=== PATIENT | female | born 2000 | race Caucasian/White ===

== ENCOUNTER 2021-01-05 14:57 | Emergency (ER) | payer OTHER ==
[~2021-01-05] VITALS: Ht 167.6 cm; Wt 109.8 kg
[2021-01-05 14:58] VITALS: BP_DIAS 90
[2021-01-05] MEDS ORDERED: PRENTAB53 PO (15:09)
[2021-01-05] MEDS ORDERED: PROMETHAZINE INJ 25 MG/ML VIAL (J2550) IV ONE (15:40)
[2021-01-05] MEDS ORDERED: NS 1,000 ML IV ONE (15:40)
[2021-01-05 16:36] LABS: BASO % 0.2 % (0.0-1.0); EOS # 0.1 10^3/uL (0.0-0.5); EOS % 0.6 % (0.0-3.0); HEMATOCRIT 40.9 % (36.0-47.0); HEMOGLOBIN 13.3 g/dl (12.0-15.5); LYMPH # 1.7 10^3/uL (1.5-5.0); LYMPH % 19.5 % (24.0-44.0); MEAN CORPUSCULAR HEMOGLOBIN 26.8 pg (27.0-33.0); MEAN CORPUSCULAR HGB CONC 32.5 g/dl (32.0-36.5); MEAN CORPUSCULAR VOLUME 82.3 fl (80.0-96.0); MONO # 0.9 10^3/uL (0.0-0.8); MONO % 9.9 % (2.0-8.0); NEUTROPHILS % 69.5 % (36.0-66.0); PLATELET COUNT, AUTOMATED 298 10^3/uL (150-450); RED BLOOD COUNT 4.97 10^6/uL (4.00-5.40); WHITE BLOOD COUNT 8.6 10^3/uL (4.0-10.0)
--- NOTE | 2021-01-05 16:44 | REP ---
INDICATION: 13 weeks, cramping, vomiting. COMPARISON: None TECHNIQUE: Transabdominal FINDINGS: Multiple ultrasonographic images of the gravid uterus shows a single living intra uterine gestation in variable but predominantly breach presentation. Doppler interrogation of the heart shows a heart rate of 134 beats per minute. The developing placenta is anterior and not low-lying. There is no evidence of a placental or retroplacental hemorrhage or hematoma. The cervix measures 3.8 cm in length and is closed. No biometric measurements were obtained by the technologist. No crown-rump length measurement was obtained. The calculated amniotic fluid index available on the provided worksheet is 6.5 cm the subjective amniotic fluid volume appears to be within normal limits. Both maternal ovaries were identified and were seen to be within normal limits. IMPRESSION: Limited early OB ultrasound as described above. <Electronically signed by Jogre L Espinal > 01/05/21 [id number]
[2021-01-05 17:05] LABS: BLOOD UREA NITROGEN 8 MG/DL (7-18); CARBON DIOXIDE LEVEL 27 MEQ/L (21-32); CHLORIDE LEVEL 100 MEQ/L (98-107); CREATININE FOR GFR 0.68 MG/DL (0.55-1.30); GLUCOSE, FASTING 73 MG/DL (70-100); SODIUM LEVEL 135 MEQ/L (136-145)
[2021-01-05 17:06] LABS: CALCIUM LEVEL 9.5 MG/DL (8.5-10.1)
[2021-01-05] MEDS ORDERED: PROM12.56 PO (18:21)
[2021-01-05 18:30] VITALS: BP_SYST 131
== END 2021-01-05 18:35 | disposition home or self-care (01) ==
LOC: M ED 14:57
DX: O26.892 Other specified pregnancy related conditions, second trimester (principal)

== ENCOUNTER → 2021-01-12 | Outpatient (REF) | payer OTHER ==
[~2021-01-12] MED LIST: PRENTAB53 PO; PROM12.56 PO
== END ==
LOC: M PLALAB 14:47
PROVIDERS: ATTEND Obstetrics & Gynecology
DX: Z3A.13 13 weeks gestation of pregnancy (principal); Z53.9 Procedure and treatment not carried out, unspecified reason

== ENCOUNTER 2021-02-15 22:48 | Emergency (ER) | payer OTHER ==
[~2021-02-15] VITALS: Ht 167.6 cm; Wt 111.7 kg
[2021-02-15] MEDS ORDERED: ACET-683 PO (22:54)
[2021-02-16 01:03] LABS: AMORPHOUS SEDIMENT SMALL (NEGATIVE); APPEARANCE, URINE CLOUDY (CLEAR); BACTERIA, URINE AUTO 1+ (NEGATIVE); BILIRUBIN, URINE AUTO NEGATIVE (NEGATIVE); BLOOD, URINE BLOOD NEGATIVE (NEGATIVE); COLOR, URINE YELLOW (YELLOW); GLUCOSE, URINE (UA) AUTO NEGATIVE (NEGATIVE); KETONE, URINE AUTO NEGATIVE (NEGATIVE); LEUKOCYTE ESTERASE, URINE AUTO 3+ (NEGATIVE); MUCUS, URINE SMALL (NEGATIVE); NITRITE, URINE AUTO NEGATIVE (NEGATIVE); PROTEIN, URINE AUTO NEGATIVE (NEGATIVE); RBC, URINE AUTO 7 /HPF (0-3); SPECIFIC GRAVITY URINE AUTO 1.013 (1.002-1.035); SQUAMOUS EPITHELIAL CELL UR AU 9 /HPF (0-6); WBC, URINE AUTO 10 /HPF (0-3)
[2021-02-16] MEDS ORDERED: MACR100C43 PO (01:27)
[2021-02-16 01:35] VITALS: BP 124/74
--- NOTE | 2021-02-16 08:08 | REP ---
INDICATION: left pelvic pain. Repeat dictation. Preliminary report is provided at the time of the exam by sandra ROMO. COMPARISON: Comparison study January 05, 2021.. TECHNIQUE: Limited obstetric sonography. Transabdominal scanning. FINDINGS: Scanning through the gravid uterus demonstrates a viable single intrauterine gestation in cephalic lie. motion is observed and heart rate is recorded at 155 beats per minute. A anterior placenta is seen, grade 0, without evidence of placenta previa. Closed cervical length is measured at 3.1 cm transabdominally. No extrauterine abnormality is observed. Amniotic fluid is subjectively normal. ОЛЬГА is normal at 13.6 cm.. SD ratio in the umbilical cord artery by Doppler is normal at 2.77.. Biometry chart: Hypoechoic area is seen in the placenta measuring 5.2 x 2.9 x 3.3 cm. This consistent with a venous Wheat. IMPRESSION: Single living intrauterine gestation in a cephalic presentation. Limited scanning shows normal amniotic fluid and umbilical arterial SD ratio. <Electronically signed by Adrian Braxton > 02/16/21 [id number]
--- NOTE | 2021-02-16 08:09 | REP ---
INDICATION: 18 weeks preg, L lower pelvic pain, l flank pain. Repeat dictation. Preliminary report is provided at the time of the exam by sandra ROMO. COMPARISON: None. TECHNIQUE: Urinary tract sonography. FINDINGS: Scanning at the level of the urinary bladder shows no abnormality. Renal cortical echogenicity pattern is normal bilaterally and contours are smooth. There is no evidence of hydronephrosis, cyst, mass, or calculus in either kidney. The right kidney measures 13.1 x 5.7 x 4.9 cm. Left renal dimensions are 12.4 x 5.6 x 7.2 cm. IMPRESSION: Normal urinary tract sonography. <Electronically signed by Adrian Braxton > 02/16/21 [id number]
== END 2021-02-16 01:46 | disposition home or self-care (01) ==
LOC: M ED 22:48
DX: O23.42 Unspecified infection of urinary tract in pregnancy, second trimester (principal); Z3A.18 18 weeks gestation of pregnancy; O99.612 Diseases of the digestive system complicating pregnancy, second trimester; K21.9 Gastro-esophageal reflux disease without esophagitis